=== PATIENT | female | born 1985 | race Caucasian/White ===

== ENCOUNTER 2019-05-02 06:19 | Inpatient (IN) ==
[2019-05-02] MEDS ORDERED: D5 1/2 NS 1000 ML 1,000 ML IV ONE (06:27)
[2019-05-02] MEDS ORDERED: D5LR 1L W PITOCIN 10 UNITS/L 10 UNITS/1,000 ML BAG IV ONE (06:27)
[2019-05-02] MEDS ORDERED: PHENERGAN INJ 25 MG IM PRN ×2 (06:42→15:24)
[2019-05-02] MEDS ORDERED: D5 1/2 NS 1000 ML 1,000 ML IV SCH (06:42)
[2019-05-02] MEDS ORDERED: REGLAN INJ 10 MG VIAL IVP PRN (06:42)
[2019-05-02] MEDS ORDERED: PITOCIN IVP ONE (06:42)
[2019-05-02] MEDS ORDERED: D5LR 1L W PITOCIN 10 UNITS/L 10 UNITS/1,000 ML BAG IV PRN (06:42)
[2019-05-02] MEDS ORDERED: NUBAIN INJ 200 MG VIAL MULTIDOSE IVP PRN (06:42)
[2019-05-02] MEDS ORDERED: MORPHINE SULFATE INJ 2 MG INJ IVP PRN (06:42)
--- NOTE | 2019-05-02 07:09 | DR.OB ---
OB Quick Note - Assessment/Plan Assessment/Plan: L&D 05/02/19 at 7:00am S-No complaint. O-Afebrile,VSS [id number] with good LTV, +accel, no decel. CTX=none CVX=2cm/50%/-1/VTX AROM with clear fluid. IUPC and FSE placed. A-IUP at 39 1/7 weeks for induction P-Begin pitocin induction F/U labs Anticipate
[2019-05-02] MEDS ORDERED: REGLAN INJ 10 MG VIAL ONE (07:39)
[2019-05-02] MEDS ORDERED: LR 1000 ML IV 1,000 ML IV ONE (08:40)
[2019-05-02] MEDS ORDERED: D5 1/2 NS 1L W PITOCIN 20 UNITS/L 20 UNITS/1,000 ML BAG IV ONE (08:41)
[2019-05-02] MEDS ORDERED: FENTANYL INJ 100 mcg ONE (08:41)
[2019-05-02] MEDS ORDERED: NAROPIN EPIDURAL 0.2% + FENTANYL 90MCG 60 ML EPI ONE ×2 (08:41→14:05)
[2019-05-02] MEDS ORDERED: PITOCIN ONE (08:42)
--- NOTE | 2019-05-02 11:58 | DR.OB ---
OB Quick Note - Assessment/Plan Assessment/Plan: L&D 05/02/19 at 11:50am Pitocin=14mu/min. S-No complaint. s/p epidural. O-Afebrile,VSS [id number] with good LTV, +accel, no decel. CTX=q 1 1/2 to 2 min., about 40-55mmHg CVX=5cm/50%/-1 A-IUP at 39 1/7 weeks for induction P-Cont. pitocin induction Anticipate
[2019-05-02] MEDS ORDERED: ZOFRAN INJ 4 MG VIAL ONE (12:47)
[2019-05-02] MEDS ORDERED: MOTRIN TAB 800 MG PO PRN (15:24)
--- NOTE | 2019-05-02 15:24 | DR.OB ---
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 Head delivered over intact perineum. Nuchal cord x 1 reduced. Compound presentation with right hand to face. Body delivered over intact perineum. Cord clamped x 2 and cut. handed to attendant. Late meconium noted. Placenta delivered spontaneously / intact / 3 vessel cord. No CVX or perineal tears noted. A small vaginal tear near introitus requiring a stitch of 0-vicryl for hemostasis. Viable male , VTX/OA, wt=7'11" and 9/9, stable to NBN. Mother stable to RR. [id number].
[2019-05-02] MEDS ORDERED: ADACEL or BOOSTRIX TDaP VACCINE IM ONE ×2 (16:21→19:53)
[2019-05-02] MEDS ORDERED: DERMOPLAST SPRAY TOP PRN (16:21)
[2019-05-02] MEDS ORDERED: MILK OF MAGNESIA PO PRN (16:21)
[2019-05-02] MEDS ORDERED: AMBIEN PO PRN (16:21)
[2019-05-02] MEDS: D5 1/2 NS 1000 ML 1,000 ML with PITOCIN 20 UNITS IV SCH ×2 (17:18)
[2019-05-03] MEDS: D5 1/2 NS 1000 ML 1,000 ML with PITOCIN 20 UNITS IV SCH ×2 (01:06)
[2019-05-03 04:33] LABS: HEMATOCRIT 24.5 % (36.0-47.0)
[2019-05-03 04:47] LABS: HEMOGLOBIN 8.1 g/dL (12.0-16.0)
[2019-05-03] MEDS ORDERED: PRENATAL PLUS PO SCH (09:00)
[2019-05-03 16:11] VITALS: BP 110/65
== END 2019-05-03 16:35 | disposition home or self-care (01) | DRG 806 ==
LOC: LD 06:19 → MED/SURG 16:22
PROVIDERS: ADMIT Specialist; ATTEND Specialist
DX: Z37.0 Single live birth; Z01.818 Encounter for other preprocedural examination; Z3A.39 39 weeks gestation of pregnancy; Z23 Encounter for immunization; O32.6XX0 Maternal care for compound presentation, not applicable or unspecified; O71.4 Obstetric high vaginal laceration alone
CPT/HCPCS: 36415; 59409; 80048; 80307; 81001; 85014; 85018; 85025; 86592; 86850; 86900; 86901; 87086; 90715; A4216; A4222; J2765; J3010; J7120; S0197; S5010

== ENCOUNTER 2022-07-14 06:18 | Inpatient (IN) ==
[2022-07-14] MEDS ORDERED: BETADINE SOLN ONE (06:33)
[2022-07-14] MEDS ORDERED: PITOCIN IVP ONE (06:35)
[2022-07-14] MEDS ORDERED: REGLAN INJ 10 MG VIAL IVP PRN (06:35)
[2022-07-14] MEDS ORDERED: D5 LR + PITOCIN 10 UNITS/L 10 UNITS/1,000 ML BAG IV PRN (06:35)
[2022-07-14] MEDS ORDERED: STADOL INJ IVP PRN (06:35)
[2022-07-14] MEDS ORDERED: NUBAIN INJ 20 MG AMP IVP PRN (06:35)
[2022-07-14] MEDS: D5 1/2 NS 1,000 ML 1,000 ML IV SCH ×2 (06:55→17:42)
[2022-07-14 07:11] LABS: BASOPHILS % (AUTO) 0.4 % (0.2-1.0); EOSINOPHILS % (AUTO) 0.4 % (0.9-2.9); HEMATOCRIT 26.3 % (36.0-47.0); HEMOGLOBIN 8.8 g/dL (12.0-16.0); LYMPHOCYTES # (AUTO) 1.4 X10^3/uL (1.3-2.9); LYMPHOCYTES % (AUTO) 14.7 % (21.0-51.0); MEAN CORPUSCULAR HEMOGLOBIN 27.4 pg (27.0-34.0); MEAN CORPUSCULAR HGB CONC 33.3 g/dL (33.0-35.0); MEAN CORPUSCULAR VOLUME 82.5 fL (80.0-100.0); MEAN PLATELET VOLUME 8.8 fL (7.4-11.0); MONOCYTES # (AUTO) 0.7 x10^3/uL (0.3-0.8); MONOCYTES % (AUTO) 7.8 % (0.0-13.0); NEUTROPHILS # (AUTO) 7.3 x10^3/uL (2.2-4.8); NEUTROPHILS % (AUTO) 76.7 % (42.0-75.0); PLATELET COUNT 274 X10^3/uL (150.0-450.0); RED BLOOD COUNT 3.19 X10^6/uL (3.5-5.4); RED CELL DISTRIBUTION WIDTH 14.1 % (11.6-16.5); WHITE BLOOD COUNT 9.5 X10^3/uL (3.6-10.0)
[2022-07-14 07:14] LABS: BLOOD UREA NITROGEN 10 mg/dL (7-18); CALCIUM 8.3 mg/dL (8.5-10.1); CHLORIDE 104 mmol/L (98-107); CREATININE 0.77 mg/dL (0.55-1.02); GLUCOSE 78 mg/dL (65-99); SODIUM 137 mmol/L (136-145); eGFR NON BLACK RACES > 60 (>60)
--- NOTE | 2022-07-14 07:19 | DR.OB ---
OB Quick Note - Assessment/Plan Assessment/Plan: L&D 07/14/22 at 7:15am S-No complaint. O-Afebrile,VSS [id number] with good LTV, +accel, no decel. CTX=none CVX=2cm/50%/-1/VTX AROM with clear fluid. IUPC and FSE placed. A-IUP at 39 1/7 weeks for induction Multiparity desiring permanent sterilization AMA P-Begin pitocin induction Anticipate
[2022-07-14 08:21] LABS: BILIRUBIN,URINE NEGATIVE (NEGATIVE); BLOOD/HEMOGLOBIN,URINE 1+ (NEGATIVE); GLUCOSE, URINE NEGATIVE (NEGATIVE); KETONES,URINE NEGATIVE (NEGATIVE); LEUKOCYTE ESTERASE ,URINE 3+ (NEGATIVE); NITRITES,URINE NEGATIVE (NEGATIVE); PH,URINE 6.5 (5.0 - 8.0); PROTEIN,URINE 1+ (NEGATIVE); UROBILINOGEN,URINE NORMAL (NORMAL)
[2022-07-14 08:23] LABS: APPEARANCE,URINE HAZY (CLEAR); COLOR,URINE PALE YELLOW (YELLOW)
[2022-07-14 08:32] LABS: RBC,URINE 0-2 /HPF (0-3)
[2022-07-14 08:33] LABS: BACTERIA,URINE TRACE /HPF (NEGATIVE); SPERM,URINE RARE /HPF (NEGATIVE); SQUAMOUS EPITHELIAL CELL,UR FEW /HPF (NEGATIVE)
[2022-07-14] MEDS ORDERED: ZOFRAN INJ 4 MG VIAL ONE ×2 (08:38→12:42)
[2022-07-14] MEDS ORDERED: LR 1,000 ML IV 1,000 ML IV ONE (08:39)
[2022-07-14] MEDS: ZOFRAN INJ 4 MG VIAL IVP PRN ×3 (09:13→18:04)
[2022-07-14] MEDS ORDERED: NAROPIN EPIDURAL 0.2% 100 ML ONE (09:14)
[2022-07-14] MEDS ORDERED: FENTANYL VIAL INJ 100 mcg ONE ×2 (09:14→15:49)
[2022-07-14] MEDS ORDERED: LIDOCAINE 2%-EPI 1:200,000 ONE ×2 (10:47→15:56)
[2022-07-14] MEDS ORDERED: EPHEDRINE SULFATE INJ ONE (11:48)
[2022-07-14] MEDS ORDERED: REGLAN INJ 10 MG VIAL ONE (13:22)
[2022-07-14] MEDS ORDERED: D5 1/2 NS 1,000 mL + PITOCIN 20 UNITS/L IV 20 UNITS/1,000 ML BAG IV ONE (14:47)
[2022-07-14] MEDS: D5 1/2 NS 1,000 ML 1,000 ML with PITOCIN 20 UNITS IV SCH ×4 (14:51→23:12)
[2022-07-14] MEDS ORDERED: ANCEF VIAL 1 GRAM ONE (15:15)
[2022-07-14] MEDS ORDERED: NS 100 ML IV 100 ML ONE (15:15)
[2022-07-14] MEDS ORDERED: DIPRIVAN VIAL 20 ML ONE ×2 (15:47→16:58)
[2022-07-14] MEDS ORDERED: OFIRMEV IV 1000 MG VIAL 1,000 MG/100 ML VIAL IV ONE (15:47)
[2022-07-14] MEDS ORDERED: DECADRON INJ ONE (15:48)
[2022-07-14] MEDS ORDERED: TORADOL 30 MG VIAL ONE (15:48)
[2022-07-14] MEDS ORDERED: VERSED ONE (15:49)
[2022-07-14] MEDS ORDERED: NS 500 ML IV 500 ML IV ONE (16:14)
[2022-07-14] MEDS ORDERED: KETAMINE HCL ONE (16:21)
[2022-07-14] MEDS ORDERED: PEPCID 20 MG VIAL ONE (16:39)
--- NOTE | 2022-07-14 17:39 | DR.OB ---
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 Head delivered over intact perineum. No nuchal cord. Nose and mouth bulb suctioned. Body delivered over intact perineum. Cord clamped x 2 and cut. handed to attendant. Cord sent for gases. Placenta delivered spontaneously / intact / 3 vessel cord. A small superficial tear at introitus noted to bleeding, no hemostatic despite pressure--a figure-of-8 stitch of 0-vicryl placed with good hemostasis. No other CVX / vaginal / perineal tears noted. Viable female , VTX/OA, wt=7'10" and 8/9, stable to NBN. Mother stable to RR. [id number]. Hold for PP BTL.
[2022-07-14] MEDS ORDERED: MYLICON TAB 80 MG CHEW PO PRN (19:09)
[2022-07-14] MEDS ORDERED: MILK OF MAGNESIA PO PRN ×2 (19:09)
[2022-07-14] MEDS ORDERED: ADACEL or BOOSTRIX TDaP VACCINE IM ONE (19:09)
[2022-07-14] MEDS ORDERED: DERMOPLAST PAIN RELIEF SPRAY TOP PRN (19:09)
[2022-07-14] MEDS ORDERED: AMBIEN PO PRN ×2 (19:09)
[2022-07-14] MEDS: PERCOCET TAB 5/325 MG PO PRN (23:13)
[2022-07-15] MEDS: MOTRIN TAB 800 MG PO PRN ×2 (03:19→10:41)
[2022-07-15 05:18] LABS: HEMATOCRIT 22.1 % (36.0-47.0); HEMOGLOBIN 7.3 g/dL (12.0-16.0)
[2022-07-15] MEDS: D5 1/2 NS 1,000 ML 1,000 ML with PITOCIN 20 UNITS IV SCH ×4 (06:03→14:58)
[2022-07-15] MEDS: PERCOCET TAB 5/325 MG PO PRN (07:09)
[2022-07-15] MEDS ORDERED: PRENATAL PLUS PO ONE (07:49)
[2022-07-15] MEDS ORDERED: PRENATAL PLUS PO SCH (09:00)
[2022-07-15 12:23] VITALS: BP 125/60; PULSE 69; TEMP 98.4; O2SAT 97
== END 2022-07-15 15:45 | disposition home or self-care (01) | DRG 798 ==
LOC: LD 06:18
PROVIDERS: ADMIT Specialist; ATTEND Specialist
DX: O80 Encounter for full-term uncomplicated delivery; Z37.0 Single live birth; Z3A.39 39 weeks gestation of pregnancy; Z30.2 Encounter for sterilization